=== PATIENT | male | born 1950 | race Caucasian/White ===

== ENCOUNTER 2016-08-12 16:22 | Inpatient (IN) | payer MEDICARE, OTHER ==
[~2016-08-12] VITALS: Ht 182.8 cm; Wt 58.1 kg
--- NOTE | ~2016-08-12 | PR ---
[place], [place] PROGRESS NOTE NAME: NELL VAIL UNIT #: [id number] ROOM: 309 DOCTOR: PHU ACEVEDO BIRTHDATE: [birth year] DOS: 08/16/2016 CHIEF COMPLAINT: "I am so depressed, my stomach upset." SUMMARY OF VISIT: The patient was assessed in the line of site room next to the nurses' station. He is currently on line of site for actively suicidal. The patient is very lethargic, no energy, lying in a position, curled up, mostly complaining about stomach which has been little ongoing issues for him for quite some time but overwhelmingly depressed as well. 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 I am unsure if this is accurate or not, but that he fears that he may have missed something on the patient from the beginning of his practice and that has haunted him for a long time. He seems to be fixated on events of his past. MENTAL STATUS: Alert and oriented to person, place, approximate time. Mood overwhelmingly depressed. Affect flat, blunted, and constricted range, multiple neurovegetative symptoms, positive suicidal thoughts. No overt signs of auditory or visual hallucinations, delusions, paranoia. No darrian or hypomania. I see in Dr. Burns's notes that states part of his symptom complex is nihilistic delusions and has need to punish himself, etc. He did not express any of this to me today, but further talking to nursing, the patient is predominantly focused on that and almost punishing himself for things he cannot control better in the past. PLAN: Dr. Burns increased his Marinol yesterday. I am going to leave the words that he increase the Zyprexa to 7.5 at night, 2.5 during the day for a total of 10 mg throughout the day. Since he is on the Marinol and the Zyprexa, I am going to go ahead and get rid of the Remeron, it does not seems to be effective, I started this on him at the nursing facility when I saw him last week, so I am going to discontinue the Remeron. It was low dose for depression, sleep and appetite. Since he is on the Marinol for the appetite and the Zyprexa for treatment resistant depression, I am going to add some Trintellix 10 mg at bedtime and see if I can help, will allow this to be augmented by the Zyprexa for treatment-resistant severe depression, but also may be given a little bump in his energy and see if we can get him feeling a little bit better. We will continue to do line of site, engage in individual and banks milieu therapy. Plan to look at discharge once stable, back to [place]. [place], [place] PROGRESS NOTE NAME: NELL VAIL UNIT #: [id number] ROOM: 309 DOCTOR: PHU ACEVEDO BIRTHDATE: [birth year] KARL ACEVEDO CNP CM:PENELOPE [id number] PHU ACEVEDO 08/17/16 0342 interface
--- NOTE | ~2016-08-12 | PR ---
[place], [place] PROGRESS NOTE NAME: NELL VAIL UNIT #: [id number] ROOM: 309 DOCTOR: PHU ACEVEDO BIRTHDATE: [birth year] DOS: 08/17/2016 CHIEF COMPLAINT: "Good morning." SUMMARY OF VISIT: The patient was interviewed in the 24-hour observation room where he was resting comfortably. He engaged readily in conversation. He did complain that his stomach was a little more upset today. I talked to him about the fact that I had stopped the Remeron last night and switched over to Trintellix, antidepressant that is faster acting should help may be given a little boosted energy in the first few days give him a little bit of GI distress. I offered to change it back ____ actually if it is faster acting, I would like to give it a shot. I am going to ____ see if I can tolerate it. He was little bit more talkative today. He acknowledges thinking about dying, but states that he never could do it. MENTAL STATUS: Alert and oriented to person, place, approximate time. Mood still overwhelming depressed. Affect flat planted in the constricted range, multiple neurovegetative symptoms in particular, the GI issues. Positive suicidal thoughts. No overt signs of auditory or visual hallucinations, delusions or paranoia. PLAN: Keep his medications where they are today. Given Trintellix for couple of more days to kind of kick in and have GI issues go away. He slept very good last night. Continue to try to engage in individual and banks milieu therapy with the plan to discharge once stable. KARL ACEVEDO CNP CM:PNTRANS 0716 PHU ACEVEDO 08/18/16 003 interface
--- NOTE | ~2016-08-12 | WRIGHTHP ---
[place], [place] PATIENT HISTORY AND PHYSICAL EXAM NAME: NELL VAIL UNIT #: [id number] ROOM: 309 DOCTOR: KEMAL EDGE MD BIRTHDATE: [birth year] DOS: 08/13/2016 CHIEF COMPLAINT: "I am depressed, I don't not care to live anymore." HISTORY OF PRESENT ILLNESS: This is a 65-year-old white male who was sent here from [facility] in [place], [place]. 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 The patient has been battling depression for some time. He endorsed significant neurovegetative symptoms that include poor sleep with difficulty falling asleep, sleep continuity disturbance, house manager awakening, anergia, anhedonia, hopeless, helpless feelings. He also endorses poor appetite with a 45 pound weight loss in the past year. Most significantly he is actively suicidal and has stated that he wants to end his life because it is not worth living. Most recently, he has had an overdose of OxyContin that he was prescribed in the past resulting in a hospitalization. He is ruminative and fixated on having lost one of his patients and feels that it was his fault and he deserves to because of this. Attempts to redirect and change his medicine have been ineffective. On the day of admission, he did endorse significant suicidality with the nurse practitioner that rounded on him and was not able to state that he would ever be able to keep himself safe. Since he has been here in the hospital for less than 24 hours, the patient has been bedridden and has refused to talk to anyone. He is admitted now to rule out organic factors and attempt to stabilize on medication. PAST MEDICAL HISTORY: Remarkable for chronic pain, GERD, hyperlipidemia, irritable bowel syndrome, kidney stones, seizure disorder. MENTAL STATUS: The patient is alert and oriented with some gaps. Mood is overwhelmingly depressed. Affect is flat, blunted, and constricted. He is somewhat nihilistic, most of his responses tended to be short and simple but he does endorse significant depressive symptomatology. He endorses positive suicidal thoughts that persist with plan. He plans to hang himself if given a chance. Memory seems relatively intact. DIAGNOSIS: Major depression, recurrent, severe. PLAN: I have upped his Remeron from 7.5 to 15 mg at bedtime and have him on Zyprexa 7.5 mg at bedtime as well to augment the effectiveness of the Remeron and also stimulate appetite. Given the fact that he tends to be immobile, I am discontinuing his Megace as I fear for possible DVT or PE. Instead, I will start him on Marinol 2.5 mg twice daily. I will consult Dr. Armando Santos, psychologist, to engage the patient in some form of counseling to see if we can help strip away some of his negativity and nihilism. We will attempt to engage him in other forms of group activities with the ultimate plan to return back to the long-term care from which he came. [place], [place] PATIENT HISTORY AND PHYSICAL EXAM NAME: NELL VAIL UNIT #: [id number] ROOM: 309 DOCTOR: KEMAL EDGE MD BIRTHDATE: [birth year] KEMAL EDGE MD CM:HISPHYS:PATIENT HISTORY AND PHYSICAL EXAMINATION 3 3 KEMAL EDGE MD 08/13/16943 interface
--- NOTE | ~2016-08-12 | PR ---
[place], [place] PROGRESS NOTE NAME: NELL VAIL UNIT #: [id number] ROOM: 312 DOCTOR: MICHELLE SNEED BIRTHDATE: [birth year] DOS: 08/18/2016 CHIEF COMPLAINT: "My stomach hurts." SUMMARY OF THE VISIT: He is lying in bed. He is not wanting to eat this morning because he says that his stomach is cramping and burning. He had a good weekend. He says that his appetite is better, but he is still very, very depressed. MENTAL STATUS EXAMINATION: He is alert. He is oriented x 3. Affect is flat. Mood is still very depressed. PLAN: Trintellix was started this weekend that could be contributing to his upset stomach. It has only been on for a couple of days, so we are going to see if that helps him to have a little more energy. Gave him a p.r.n. order for Mylanta for the burning in his stomach. He is to take medication for reflux when he was at home. Considering if he does not start trending more towards euthymic, there has been a consideration for possible ECT treatment. He has several personal issues. We will refer him to Psychology for counseling as well. We will continue to try to engage him in individual and banks milieu and discharge him to the least restrictive environment when he is psychiatrically stable. Michelle Sneed NP CM:PNTRANS [phone] MICHELLE SNEED 08/18/16 1742 interface
--- NOTE | ~2016-08-12 | PR ---
[place], [place] PROGRESS NOTE NAME: NELL VAIL UNIT #: [id number] ROOM: 309 DOCTOR: KEMAL EDGE MD BIRTHDATE: [birth year] DOS: 08/13/2016 CHIEF COMPLAINT: "I don't have much hope; I have been this way so long." SUMMARY OF THE VISIT: The patient was interviewed as he sat eating breakfast in the dining area. He actually stopped and made eye contact with me and engaged in much more conversation than he had previously. He reports that he is horribly depressed, but does on a positive note realize that he has slept a little better and does have more of an appetite since his medicines have been changed. He reports that he feels hopeless and helpless and does not see anyway that his life will ever change again. There is a bit of nihilism in him regarding his life and things that have happened to him almost to the point of being delusional in nature. He is tolerating the current medication regimen well and I see no residual sedation or somnolence this morning. Of note, his vitamin B12 level is low normal at 380. MENTAL STATUS: He is alert and oriented. Mood is overwhelmingly depressed. Affect is flat, blunted and constricted. His speech is soft, almost whisper like and his responses tended to be very short and simple. There is a hint of nihilism and negativity in all that he speaks of even this fixation on the patient who seems to be an exaggerated belief on his part. There is no symptom suggestive of hypomania or darrian. Memory does seem to be relatively intact. PLAN: I will maintain his current dose of Remeron, Zyprexa and Marinol. Given the fact that his B12 levels is low therapeutic, I will still go ahead and load with vitamin B12 injection of 1000 mcg IM now. We will continue to engage him in individual and banks milieu activity with the ultimate plan to discharge to the least restrictive environment when psychiatrically stable. KEMAL EDGE MD CM:PNTRANS [id number] KEMAL EDGE MD 08/14/16 1240 interface
--- NOTE | ~2016-08-12 | CON ---
[place], [place] REPORT OF CONSULTATION NAME: NELL VAIL UNIT #: [id number] ROOM: 309 DOCTOR: RIDGE SOLITARIO ED.D (SABINO) BIRTHDATE: [birth year] DOS: 08/13/2016 HISTORY OF PRESENT ILLNESS: The patient is a 65-year-old male referred by Dr. dEge for major depression. At the present time, he is on the [facility] at [facility]. He is and had 2 stepchildren. He states he does not have much contact with his stepchildren. 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 His medical history is pertinent for seizure disorder, GERD, urinary retention, colitis, and major depressive disorder. He does have a court appointed guardian, Chalo Rivera. This patient's medications include Zyprexa, Megace, Marinol. He has attempted suicide at least 2 times. He denies any significant substance abuse issues. This patient was awake, alert and oriented in all 3 spheres, but was extremely depressed. He did not appear to be having any active auditory hallucinations or delusional thoughts. He states he has been hospitalized 5 different times and followed up outpatient with the psychiatrist. He states he has never actually gone for outpatient psychotherapy, although he did have 1 psychiatrist to talk to him every 3 months. He recently has lost 45 pounds. This patient was very depressed throughout the interview and stated that he remains suicidal. He states he has no purpose of living. He obviously needs intensive outpatient psychotherapy and that should be set up following his discharge from the hospital. DIAGNOSES: Major depressive disorder, recurrent -- severe. RECOMMENDATIONS: In my opinion, this patient would benefit from outpatient and inpatient psychotherapy. Thank you very much for this consult. RIDGE SOLITARIO ED.D CM:CONSTR:REPORT OF CONSULTATION 1444 08/13/16 2005 interface KEMAL EDGE MD
--- NOTE | ~2016-08-12 | PR ---
[place], [place] PROGRESS NOTE NAME: NELL VAIL UNIT #: [id number] ROOM: 309 DOCTOR: KEMAL EDGE MD BIRTHDATE: [birth year] DOS: 08/15/2016 CHIEF COMPLAINT: "I don't deserve to live, I don't deserve special treatment." SUMMARY OF THE VISIT: The patient was interviewed once again as he rested in bed. He did not want to get up out of bed to go eat breakfast and stated he does not want to eat, he does not deserve to eat and he does not deserve to live. He remains horribly depressed and despondent. This is in aparicio contrast to yesterday morning when at least he was out of bed in the dining area, eating breakfast. He denies any medication side effects and none are seen. MENTAL STATUS: He is alert and oriented with time gaps. Mood is overwhelmingly depressed. Affect is flat, blunted with constricted range. He endorses multiple neurovegetative symptoms and also endorses positive suicidal thoughts. There is no darrian or hypomania. I do believe that part of his symptom complex is nihilistic delusions. This whole sense that he needs to be punished and does not deserve food or deserve to live, I do believe is a delusional component. PLAN: I will increase his Marinol from 2.5 mg twice daily to 5 mg twice daily in an effort to try to drive his appetite up. I will increase the Zyprexa from 7.5 mg a day to 10 mg a day to try to break the psychotic symptomatology. He refused to take the vitamin B12 injection, but did state he was willing to take pills, so I will discontinue the injection and start him on vitamin B12 pills 500 mcg daily. We will engage in individual and banks milieu activity with the ultimate plan to return to the least restrictive environment when psychiatrically stable. KEMAL EDGE MD CM:PNTRANS [id number] KEMAL EDGE MD 08/15/16 0948 interface
[2016-08-12] MEDS ORDERED: REMERON15 M2 PO (18:29)
[2016-08-12] MEDS ORDERED: ZYPREXA7.5 M1 PO (18:32)
[2016-08-12] MEDS ORDERED: DICYCLOMINE HCL10 MG PO (18:34)
[2016-08-12] MEDS ORDERED: CYMBALTA60 MG PO (18:36)
[2016-08-12] MEDS ORDERED: CARAFATE1 G1 PO (18:39)
[2016-08-12] MEDS ORDERED: MEGACE 40400 MG/10 PO (18:45)
[2016-08-12] MEDS ORDERED: KEPPRA500 MG PO (18:46)
[2016-08-12] MEDS ORDERED: FLOMAX0.4 MG PO (18:48)
[2016-08-12] MEDS ORDERED: URECHOLINE25 MG PO (18:50)
[2016-08-13 00:03] VITALS: BP 111/58
[2016-08-13 00:33] VITALS: BP 111/54
[2016-08-13 06:56] LABS: BASO % 0.8 % (0.0-1.0); EOS # 0.3 10*3/uL (0.0-0.4); EOS % 6.5 % (1.0-4.0); HEMOGLOBIN 13.2 g/dl (14.0-18.0); IG # 0.1 10*3/uL (0.0-0.1); LYMPH # 1.5 10*3/uL (1.3-4.4); LYMPH % 28.2 % (27.0-41.0); MEAN CELL VOLUME 94.3 fl (80.0-94.0); MEAN CORPUSCULAR HGB 31.1 pg (27.0-31.0); MEAN PLATELET VOLUME 9.5 fl (9.6-12.3); MONO # 0.5 10*3/uL (0.1-1.0); MONO % 10.3 % (3.0-9.0); NEUT # 2.8 10*3/uL (2.3-7.9); NEUT % 53.2 % (47.0-73.0); PLATELET COUNT AUTOMATED 234 10*3/uL (130-400); RED BLOOD COUNT 4.24 10*6/uL (4.50-5.90); RED CELL DISTRI WIDTH 12.6 % (0-14.5); WHITE BLOOD COUNT 5.2 10*3/uL (4.8-10.8)
[2016-08-13 07:28] LABS: ALBUMIN 2.9 gm/dl (3.1-4.5); BILIRUBIN, TOTAL 0.3 mg/dl (0.2-1.0); BUN 12 mg/dl (7-24); CARBON DIOXIDE 25 mmol/L (21-32); CHLORIDE 109 mmol/L (98-107); EST GLOM FILT AFRICAN AMERICAN > 60 ml/min; GLUCOSE 86 mg/dL (65-99); POTASSIUM 4.4 mmol/L (3.5-5.1); SGOT/AST 10 IU/L (3-35); SGPT/ALT 12 U/L (12-78); SODIUM 142 mmol/L (136-145); TOTAL PROTEIN 6.7 gm/dL (6.4-8.2)
[2016-08-13 07:34] LABS: ALKALINE PHOSPHATASE 63 U/L (45-117)
[2016-08-13 08:00] VITALS: BP 112/84
[2016-08-13 08:03] LABS: VITAMIN D, 25-HYDROXY 30.4 ng/mL (30-100)
[2016-08-13 19:50] VITALS: BP 107/50
[2016-08-14 00:02] LABS: BILIRUBIN NEGATIVE (NEGATIVE); BLOOD NEGATIVE (NEGATIVE); CLARITY SL CLOUDY (CLEAR); COLOR YELLOW (YELLOW); GLUCOSE NEGATIVE (NEGATIVE); KETONE NEGATIVE (NEGATIVE); LEUKO ESTERASE NEGATIVE (NEGATIVE); NITRITE NEGATIVE (NEGATIVE); PROTEIN TRACE (NEGATIVE)
[2016-08-14 00:50] LABS: CALCIUM OXALATE CRYSTALS 1+; URINE REFLEX COMMENT NO (NO); WBC 0-2 wbc/hpf (0-5)
[2016-08-14 07:48] VITALS: BP 98/62
[2016-08-14 09:11] VITALS: BP 102/60
[2016-08-14 12:50] LABS: BASO % 0.9 % (0.0-1.0); EOS # 0.3 10*3/uL (0.0-0.4); EOS % 7.1 % (1.0-4.0); HEMATOCRIT 41.4 % (42.0-52.0); HEMOGLOBIN 13.8 g/dl (14.0-18.0); LYMPH # 1.1 10*3/uL (1.3-4.4); LYMPH % 25.2 % (27.0-41.0); MEAN CELL VOLUME 94.3 fl (80.0-94.0); MEAN CORPUSCULAR HGB 31.4 pg (27.0-31.0); MEAN CORPUSCULAR HGB CONC 33.3 g/dl (33.0-37.0); MEAN PLATELET VOLUME 9.2 fl (9.6-12.3); MONO # 0.4 10*3/uL (0.1-1.0); MONO % 9.7 % (3.0-9.0); NEUT # 2.5 10*3/uL (2.3-7.9); NEUT % 56.2 % (47.0-73.0); PLATELET COUNT AUTOMATED 250 10*3/uL (130-400); RED BLOOD COUNT 4.39 10*6/uL (4.50-5.90); RED CELL DISTRI WIDTH 12.4 % (0-14.5); WHITE BLOOD COUNT 4.5 10*3/uL (4.8-10.8)
[2016-08-14 13:23] LABS: ALKALINE PHOSPHATASE 68 U/L (45-117); BILIRUBIN, TOTAL 0.3 mg/dl (0.2-1.0); BUN 14 mg/dl (7-24); CARBON DIOXIDE 30 mmol/L (21-32); CHLORIDE 105 mmol/L (98-107); EST GLOM FILT AFRICAN AMERICAN > 60 ml/min; GLUCOSE 124 mg/dL (65-99); SGOT/AST 9 IU/L (3-35); SGPT/ALT 11 U/L (12-78); SODIUM 146 mmol/L (136-145)
[2016-08-14 20:01] VITALS: BP 112/52
[2016-08-15 06:51] VITALS: BP 93/48
[2016-08-15 08:11] VITALS: BP 103/48
[2016-08-15 15:05] LABS: LEVETIRACETAM (KEPPRA) 716936 6.2 ug/mL (10.0-40.0)
[2016-08-15 20:28] VITALS: BP 100/40; BP 112/52
[2016-08-16 07:31] VITALS: BP 98/40
[2016-08-16 08:49] VITALS: BP 90/50
[2016-08-16 14:51] VITALS: BP 90/50
[2016-08-16 20:00] VITALS: BP 100/50
[2016-08-17 08:01] VITALS: BP 93/37
[2016-08-17 08:19] VITALS: BP 92/48
[2016-08-17 09:10] VITALS: BP 98/46
[2016-08-17 12:53] VITALS: BP 100/50
[2016-08-17 20:26] VITALS: BP 110/68
[2016-08-18 08:06] VITALS: BP 108/42
[2016-08-18 19:46] VITALS: BP 89/42
[2016-08-18 20:02] VITALS: BP 92/52
[2016-08-18 22:54] VITALS: BP 140/58
[2016-08-19 05:56] LABS: BASO % 0.5 % (0.0-1.0); EOS # 0.2 10*3/uL (0.0-0.4); HEMATOCRIT 32.5 % (42.0-52.0); HEMOGLOBIN 10.6 g/dl (14.0-18.0); LYMPH % 22.8 % (27.0-41.0); MEAN CELL VOLUME 93.4 fl (80.0-94.0); MEAN CORPUSCULAR HGB 30.5 pg (27.0-31.0); MEAN CORPUSCULAR HGB CONC 32.6 g/dl (33.0-37.0); MEAN PLATELET VOLUME 9.6 fl (9.6-12.3); MONO # 0.4 10*3/uL (0.1-1.0); MONO % 10.1 % (3.0-9.0); NEUT # 2.5 10*3/uL (2.3-7.9); NEUT % 60.6 % (47.0-73.0); PLATELET COUNT AUTOMATED 231 10*3/uL (130-400); RED BLOOD COUNT 3.48 10*6/uL (4.50-5.90); RED CELL DISTRI WIDTH 12.2 % (0-14.5); WHITE BLOOD COUNT 4.2 10*3/uL (4.8-10.8)
[2016-08-19 06:05] LABS: BUN 12 mg/dl (7-24); CARBON DIOXIDE 22 mmol/L (21-32); CHLORIDE 112 mmol/L (98-107); EST GLOM FILT AFRICAN AMERICAN > 60 ml/min; GLUCOSE 110 mg/dL (65-99); SODIUM 143 mmol/L (136-145)
[2016-08-19 08:22] VITALS: BP 80/50
[2016-08-19 11:40] VITALS: BP 90/52
[2016-08-19 12:40] VITALS: BP 90/40
[2016-08-19 13:37] VITALS: BP 110/46
[2016-08-19 17:19] VITALS: BP 140/78
[2016-08-19 20:15] VITALS: BP 84/62
[2016-08-20 07:32] VITALS: BP 121/86
[2016-08-20 19:54] VITALS: BP 128/68
[2016-08-21 06:39] LABS: BASO % 0.6 % (0.0-1.0); EOS # 0.3 10*3/uL (0.0-0.4); EOS % 6.5 % (1.0-4.0); HEMATOCRIT 33.4 % (42.0-52.0); HEMOGLOBIN 10.8 g/dl (14.0-18.0); LYMPH # 1.3 10*3/uL (1.3-4.4); LYMPH % 26.8 % (27.0-41.0); MEAN CELL VOLUME 95.2 fl (80.0-94.0); MEAN CORPUSCULAR HGB 30.8 pg (27.0-31.0); MEAN CORPUSCULAR HGB CONC 32.3 g/dl (33.0-37.0); MEAN PLATELET VOLUME 9.3 fl (9.6-12.3); MONO # 0.5 10*3/uL (0.1-1.0); MONO % 11.1 % (3.0-9.0); NEUT # 2.6 10*3/uL (2.3-7.9); NEUT % 54.8 % (47.0-73.0); PLATELET COUNT AUTOMATED 241 10*3/uL (130-400); RED BLOOD COUNT 3.51 10*6/uL (4.50-5.90); RED CELL DISTRI WIDTH 12.4 % (0-14.5); WHITE BLOOD COUNT 4.8 10*3/uL (4.8-10.8)
[2016-08-21 07:25] LABS: ALBUMIN 2.2 gm/dl (3.1-4.5); BUN 10 mg/dl (7-24); CARBON DIOXIDE 22 mmol/L (21-32); CHLORIDE 113 mmol/L (98-107); GLUCOSE 92 mg/dL (65-99); POTASSIUM 4.1 mmol/L (3.5-5.1); SGOT/AST 11 IU/L (3-35); SODIUM 146 mmol/L (136-145)
[2016-08-21 07:27] LABS: ALKALINE PHOSPHATASE 44 U/L (45-117); BILIRUBIN, TOTAL 0.2 mg/dl (0.2-1.0); EST GLOM FILT AFRICAN AMERICAN > 60 ml/min; SGPT/ALT 13 U/L (12-78); TOTAL PROTEIN 5.6 gm/dL (6.4-8.2)
[2016-08-21 07:49] VITALS: BP 92/52; BP 94/52
[2016-08-21 10:14] VITALS: BP 122/58
[2016-08-21 19:50] VITALS: BP 88/45
[2016-08-22 06:50] VITALS: BP 134/54
[2016-08-22 20:45] VITALS: BP 110/55
[2016-08-23 08:18] VITALS: BP 98/52
[2016-08-23 21:50] VITALS: BP 100/60
[2016-08-24 06:55] LABS: BASO % 0.7 % (0.0-1.0); EOS # 0.4 10*3/uL (0.0-0.4); EOS % 9.1 % (1.0-4.0); HEMATOCRIT 32.7 % (42.0-52.0); HEMOGLOBIN 10.9 g/dl (14.0-18.0); LYMPH % 23.1 % (27.0-41.0); MEAN CORPUSCULAR HGB 31.3 pg (27.0-31.0); MEAN CORPUSCULAR HGB CONC 33.3 g/dl (33.0-37.0); MEAN PLATELET VOLUME 9.4 fl (9.6-12.3); MONO # 0.4 10*3/uL (0.1-1.0); MONO % 8.4 % (3.0-9.0); NEUT # 2.6 10*3/uL (2.3-7.9); PLATELET COUNT AUTOMATED 258 10*3/uL (130-400); RED BLOOD COUNT 3.48 10*6/uL (4.50-5.90); RED CELL DISTRI WIDTH 12.6 % (0-14.5); WHITE BLOOD COUNT 4.5 10*3/uL (4.8-10.8)
[2016-08-24 07:28] LABS: BUN 12 mg/dl (7-24); CARBON DIOXIDE 24 mmol/L (21-32); CHLORIDE 111 mmol/L (98-107); EST GLOM FILT AFRICAN AMERICAN > 60 ml/min; GLUCOSE 93 mg/dL (65-99); POTASSIUM 4.2 mmol/L (3.5-5.1); SODIUM 144 mmol/L (136-145)
[2016-08-24 08:18] VITALS: BP 104/58
[2016-08-24 20:03] VITALS: BP 110/78
[2016-08-25 07:59] VITALS: BP 98/52
[2016-08-25 19:58] VITALS: BP 108/60
[2016-08-26 07:48] VITALS: BP 92/44
[2016-08-26 19:57] VITALS: BP 130/58
[2016-08-27 09:10] VITALS: BP 85/44
[2016-08-27 11:01] LABS: BASO % 0.5 % (0.0-1.0); EOS # 0.3 10*3/uL (0.0-0.4); EOS % 7.7 % (1.0-4.0); HEMATOCRIT 33.9 % (42.0-52.0); HEMOGLOBIN 10.7 g/dl (14.0-18.0); IG # 0.1 10*3/uL (0.0-0.1); LYMPH # 0.9 10*3/uL (1.3-4.4); LYMPH % 21.2 % (27.0-41.0); MEAN CORPUSCULAR HGB 30.9 pg (27.0-31.0); MEAN CORPUSCULAR HGB CONC 31.6 g/dl (33.0-37.0); MEAN PLATELET VOLUME 9.4 fl (9.6-12.3); MONO # 0.4 10*3/uL (0.1-1.0); MONO % 9.8 % (3.0-9.0); NEUT # 2.6 10*3/uL (2.3-7.9); NEUT % 59.4 % (47.0-73.0); PLATELET COUNT AUTOMATED 275 10*3/uL (130-400); RED BLOOD COUNT 3.46 10*6/uL (4.50-5.90); RED CELL DISTRI WIDTH 12.6 % (0-14.5); WHITE BLOOD COUNT 4.3 10*3/uL (4.8-10.8)
[2016-08-27 11:05] VITALS: BP 103/65
[2016-08-27 11:22] LABS: ALBUMIN 2.4 gm/dl (3.1-4.5); ALKALINE PHOSPHATASE 53 U/L (45-117); BILIRUBIN, TOTAL 0.2 mg/dl (0.2-1.0); BUN 14 mg/dl (7-24); CARBON DIOXIDE 28 mmol/L (21-32); CHLORIDE 109 mmol/L (98-107); EST GLOM FILT AFRICAN AMERICAN > 60 ml/min; GLUCOSE 111 mg/dL (65-99); POTASSIUM 4.2 mmol/L (3.5-5.1); SGOT/AST 13 IU/L (3-35); SGPT/ALT 15 U/L (12-78); SODIUM 146 mmol/L (136-145)
[2016-08-27 12:07] LABS: BILIRUBIN NEGATIVE (NEGATIVE); BLOOD NEGATIVE (NEGATIVE); CLARITY SL CLOUDY (CLEAR); COLOR YELLOW (YELLOW); GLUCOSE NEGATIVE (NEGATIVE); KETONE NEGATIVE (NEGATIVE); LEUKO ESTERASE TRACE (NEGATIVE); NITRITE NEGATIVE (NEGATIVE); PROTEIN NEGATIVE (NEGATIVE); SPECIFIC GRAVITY <= 1.005 (1.005-1.030); UROBILINOGEN 0.2 E.U./dl (0.2-1.0)
[2016-08-27 12:15] LABS: URINE AMPHETAMINES < 1000 (1000ng/ml); URINE BARBITURATES < 200 (200ng/ml); URINE COCAINE < 300 (300ng/ml)
[2016-08-27 12:18] LABS: RBC 0-2 rbc/hpf (0-2); WBC 0-2 wbc/hpf (0-5)
[2016-08-27 12:19] LABS: BACTERIA TRACE
[2016-08-27 19:50] VITALS: BP 111/50
[2016-08-28 07:38] VITALS: BP 114/53
[2016-08-28] MEDS ORDERED: B12,B-12,B 12500 MC1 PO (09:29)
[2016-08-28] MEDS ORDERED: ROZEREM8 MG PO (09:29)
[2016-08-28] MEDS ORDERED: MARINOL2.5 M1 PO (09:29)
[2016-08-28] MEDS ORDERED: OLANZAPINE7.5 M1 PO (09:29)
[2016-08-28] MEDS ORDERED: BRIN20TA PO (09:29)
== END 2016-08-28 12:49 | disposition home health service (06) | DRG 885 ==
LOC: 3N 16:22
PROVIDERS: Internal Medicine; Psychiatry & Neurology Psychiatry
DX: F33.2 Major depressive disorder, recurrent severe without psychotic features (principal); E43 Unspecified severe protein-calorie malnutrition; R45.851 Suicidal ideations; Z68.1 Body mass index [BMI] 19.9 or less, adult; G89.29 Other chronic pain; K21.9 Gastro-esophageal reflux disease without esophagitis; E78.5 Hyperlipidemia, unspecified; K58.9 Irritable bowel syndrome, unspecified; N20.0 Calculus of kidney; G40.909 Epilepsy, unspecified, not intractable, without status epilepticus; Z74.01 Bed confinement status; F17.210 Nicotine dependence, cigarettes, uncomplicated; F41.9 Anxiety disorder, unspecified; R30.0 Dysuria; I95.1 Orthostatic hypotension